=== PATIENT | male | born 1955 | race African-American/Black ===

== ENCOUNTER 2019-12-31 00:14 | Inpatient (IN) | payer MEDICAID ==
[~2019-12-31] VITALS: Ht 190.5 cm; Wt 128.8 kg
[2019-12-31] MEDS ORDERED: DEXTROSE 50% WATER 50ML SYRINGE IV ONE ×3 (00:55→11:44)
[2019-12-31] MEDS ORDERED: MORPHINE SULFATE 4 MG/ML CPJ (NOT FOR IM USE) IV STA (01:11)
[2019-12-31] MEDS ORDERED: SODIUM CHLORIDE 0.9% 1,000 ML IV ONE (01:11)
[2019-12-31] MEDS ORDERED: ONDANSETRON HCL 4MG/2ML INJ IV STA (01:11)
[2019-12-31] MEDS ORDERED: DEXT 10% WATER 1,000 ML IV ONE (01:11)
[2019-12-31] MEDS ORDERED: VANCOMYCIN 1 G PREMIX 200 ML IV ONE (01:15)
[2019-12-31] MEDS ORDERED: MIDAZOLAM HCL 50 MG in DEXTROSE 5% WATER 40 ML IV ONE (01:15)
[2019-12-31] MEDS ORDERED: FENTANYL CITRATE/PF 500 MCG in SODIUM CHLORIDE 0.9% 40 ML IV PRN (01:15)
[2019-12-31] MEDS ORDERED: VECURONIUM BROMIDE 10 MG/VIAL IV ONE (01:15)
[2019-12-31] MEDS ORDERED: PIPERACILLIN/TAZ 3.375G PREMIX 50 ML IV ONE (01:15)
[2019-12-31] MEDS ORDERED: ETOMIDATE 2MG/ML 10ML VIAL IV ONE (01:15)
[2019-12-31] MEDS ORDERED: FENTANYL CITRATE/PF 1,000 MCG in SODIUM CHLORIDE 0.9% 80 ML IV PRN ×5 (01:30→12:01)
[2019-12-31] MEDS ORDERED: MIDAZOLAM HCL 100 MG in DEXT 5% WATER 80 ML IV PRN ×3 (01:30→14:30)
[2019-12-31 01:40] LABS: BG BASE EXCESS -8.9 mmol/L (-2.0-2.0); BG DEOXYHEMOGLOBIN 0.6 % (0.0-5.0); BG FRACTION INSPIRED OXYGEN 100; BG HCO3 ACT 17.8 mmol/L (22.0-26.0); BG METHEMOGLOBIN 0.7 % (0.0-1.5); BG OXYGEN SATURATION 99.4 % (92.0-98.5); BG OXYHEMOGLOBIN 97.7 % (94.0-97.0); BG PCO2 42.6 mmHg (35.0-45.0); BG PH 7.239 (7.350-7.450); BG PO2 182.8 mmHg (75.0-100.0); BG SAMPLE SITE RIGHT RADIAL; BG TIDAL VOLUME(mL) 500 mL; BG VENT MODE VENT - A/C; BG VENT RATE 16 set
[2019-12-31 02:00] LABS: HEMATOCRIT. 23.8 % (42.0-52.0); MEAN CORPUSCULAR VOLUME 71.8 fL (80.0-94.0); MEAN PLATELET VOLUME 9.5 fl (7.4-10.4); PLATELET 389 x1000/uL (130-400); RED BLOOD CELL COUNT 3.32 mill/uL (4.7-6.1); RED CELL DISTRIBUTION WIDTH 18.4 % (11.6-14.6)
[2019-12-31 02:04] LABS: INR 1.3; PROTHROMBIN TIME 13.1 sec (9.6-11.0)
[2019-12-31] MEDS ORDERED: PIPERACILLIN/TAZ 3.375G PREMIX 50 ML IV NR (02:15)
[2019-12-31 02:25] LABS: CHLORIDE 107 mEq/L (98-107)
[2019-12-31 02:29] LABS: ETHANOL BLOOD 10 mg/dL
[2019-12-31 03:04] LABS: PLATELET ESTIMATE NORMAL
[2019-12-31] MEDS: VANCOMYCIN 1 G PREMIX 200 ML IV NR ×2 (04:28→06:06)
[2019-12-31 06:20] LABS: CLARITY URINE CLOUDY (CLEAR); COLOR URINE YELLOW (YELLOW); KETONES URINE NEGATIVE (NEGATIVE); LEUKOCYTE ESTERASE URINE 1+ (NEGATIVE); NITRITE URINE NEGATIVE (NEGATIVE); OCCULT BLOOD URINE 2+ (NEGATIVE); PROTEIN URINE 3+ (NEGATIVE); SPECIFIC GRAVITY URINE 1.019 (1.005-1.030)
[2019-12-31 06:36] LABS: OPIATES URINE SCREEN PRESUMTIVE POSITIVE (NEGATIVE); PHENCYCLIDINE URINE SCREEN NEGATIVE (NEGATIVE)
[2019-12-31 06:37] LABS: *AMPHETAMINES SCREEN URINE NEGATIVE (NEGATIVE); *BARBITURATES SCREEN URINE NEGATIVE (NEGATIVE); *BENZODIAZEPINES SCREEN URINE NEGATIVE (NEGATIVE); *COCAINE SCREEN URINE NEGATIVE (NEGATIVE); CANNABINOID URINE SCREEN NEGATIVE (NEGATIVE); METHADONE URINE SCREEN NEGATIVE (NEGATIVE)
[2019-12-31] MEDS ORDERED: NOREPINEPHRINE 8MG in DEXT 5% WATER 250ML (DOUBLE CONC) IV PRN (07:30)
[2019-12-31] MEDS: NOREPINEPHRINE 8MG in DEXT 5% WATER 250ML (DOUBLE CONC) IV PRN (07:44)
[2019-12-31] MEDS ORDERED: ONDANSETRON HCL 4MG/2ML INJ IV PRN (11:15)
[2019-12-31] MEDS: DEXT 5%/0.9% NACL 1,000 ML IV SCH (11:40)
[2019-12-31] MEDS ORDERED: PIPERACILLIN/TAZ 3.375G PREMIX 50 ML IV SCH (12:00)
[2019-12-31] MEDS ORDERED: VANCOMYCIN 1500MG in DEXTROSE 5% WATER 250ML IV SCH (12:00)
[2019-12-31] MEDS: PANTOPRAZOLE SODIUM 40 MG/VIAL IV SCH (12:17)
[2019-12-31] MEDS ORDERED: IPRATROPIUM/ALBUTEROL 0.5-3(2.5)MG/3ML NEB HHN PRN (16:30)
[2019-12-31] MEDS: FENTANYL CITRATE/PF 1,000 MCG in SODIUM CHLORIDE 0.9% 80 ML IV PRN (18:45)
[2019-12-31 19:07] LABS: HEMATOCRIT 26.9 % (42.0-52.0); HEMOGLOBIN 8.1 g/dL (14.0-18.0)
[2019-12-31] MEDS: PIPERACILLIN/TAZOBACTAM 3.375 G in DEXT 5% WATER 100 ML IV SCH (19:10)
[2019-12-31 19:16] LABS: INR 1.3; PROTHROMBIN TIME 13.3 sec (9.6-11.0)
[2019-12-31 19:49] LABS: FOLIC ACID (FOLATE) SERUM 5.5 ng/mL (>5.38)
[2019-12-31] MEDS: IPRATROPIUM/ALBUTEROL 0.5-3(2.5)MG/3ML NEB HHN SCH (21:10)
[2020-01-01] VITALS (58 sets, daily range): BP systolic 89–122; BP diastolic 27–71
[2020-01-01] MEDS: PIPERACILLIN/TAZOBACTAM 3.375 G in DEXT 5% WATER 100 ML IV SCH ×4 (00:13→17:23)
[2020-01-01] MEDS: IPRATROPIUM/ALBUTEROL 0.5-3(2.5)MG/3ML NEB HHN SCH ×5 (01:05→20:35)
[2020-01-01] MEDS: DEXT 5%/0.9% NACL 1,000 ML IV SCH ×2 (01:20→11:05)
[2020-01-01 05:36] LABS: HEMOGLOBIN. 7.4 g/dL (14.0-18.0); MEAN CORPUSCULAR VOLUME 71.3 fL (80.0-94.0); MEAN PLATELET VOLUME 9.2 fl (7.4-10.4); PLATELET 304 x1000/uL (130-400); RED BLOOD CELL COUNT 3.36 mill/uL (4.7-6.1); RED CELL DISTRIBUTION WIDTH 18.6 % (11.6-14.6)
[2020-01-01 08:03] LABS: PLATELET ESTIMATE NORMAL
[2020-01-01] MEDS: PANTOPRAZOLE SODIUM 40 MG/VIAL IV SCH (08:14)
[2020-01-01 10:02] LABS: BG BASE EXCESS -5.8 mmol/L (-2.0-2.0); BG CARBOXYHEMOGLOBIN 1.1 % (0.5-1.5); BG DEOXYHEMOGLOBIN 0.8 % (0.0-5.0); BG FRACTION INSPIRED OXYGEN 50; BG HCO3 ACT 19.7 mmol/L (22.0-26.0); BG METHEMOGLOBIN 0.3 % (0.0-1.5); BG OXYGEN SATURATION 99.2 % (92.0-98.5); BG OXYHEMOGLOBIN 97.8 % (94.0-97.0); BG PCO2 38.9 mmHg (35.0-45.0); BG PH 7.323 (7.350-7.450); BG PO2 142.8 mmHg (75.0-100.0); BG SAMPLE SITE RIGHT RADIAL; BG TIDAL VOLUME(mL) 500 mL; BG VENT MODE VENT - A/C; BG VENT RATE 18 set
[2020-01-01] MEDS ORDERED: VANCOMYCIN 1500MG in DEXTROSE 5% WATER 250ML IV NR (12:00)
[2020-01-01] MEDS ORDERED: FUROSEMIDE 40MG/4ML VIAL IVP NR (12:00)
[2020-01-01] MEDS: FENTANYL CITRATE/PF 1,000 MCG in SODIUM CHLORIDE 0.9% 80 ML IV PRN (13:34)
[2020-01-02] VITALS (92 sets, daily range): BP systolic 80–151; BP diastolic 47–94
[2020-01-02] MEDS: PIPERACILLIN/TAZOBACTAM 3.375 G in DEXT 5% WATER 100 ML IV SCH ×5 (00:51→23:59)
[2020-01-02] MEDS: FENTANYL CITRATE/PF 1,000 MCG in SODIUM CHLORIDE 0.9% 80 ML IV PRN (01:13)
[2020-01-02] MEDS: IPRATROPIUM/ALBUTEROL 0.5-3(2.5)MG/3ML NEB HHN SCH ×4 (02:10→20:29)
[2020-01-02] MEDS: DEXTROSE 50% WATER 50ML SYRINGE IV PRN ×2 (06:36→09:14)
[2020-01-02 08:55] LABS: BG BASE EXCESS -7.5 mmol/L (-2.0-2.0); BG CARBOXYHEMOGLOBIN 1.1 % (0.5-1.5); BG DEOXYHEMOGLOBIN 1.5 % (0.0-5.0); BG FRACTION INSPIRED OXYGEN 35; BG HCO3 ACT 18.1 mmol/L (22.0-26.0); BG METHEMOGLOBIN 0.5 % (0.0-1.5); BG OXYGEN SATURATION 98.5 % (92.0-98.5); BG OXYHEMOGLOBIN 96.9 % (94.0-97.0); BG PH 7.308 (7.350-7.450); BG PO2 117.5 mmHg (75.0-100.0); BG SAMPLE SITE RIGHT RADIAL; BG TIDAL VOLUME(mL) 500 mL; BG TOTAL HEMOGLOBIN 8.4 g/dL (12.0-18.0); BG VENT MODE VENT - A/C; BG VENT RATE 18 set
[2020-01-02] MEDS: FUROSEMIDE 40MG/4ML VIAL IVP SCH (09:19)
[2020-01-02] MEDS: PANTOPRAZOLE SODIUM 40 MG/VIAL IV SCH (09:19)
[2020-01-02 09:23] LABS: HEMOGLOBIN. 7.5 g/dL (14.0-18.0); MEAN CORPUSCULAR HEMOGLOBIN 22.2 pg (28.0-32.0); MEAN PLATELET VOLUME 9.7 fl (7.4-10.4); PLATELET 289 x1000/uL (130-400); RED BLOOD CELL COUNT 3.39 mill/uL (4.7-6.1); RED CELL DISTRIBUTION WIDTH 18.7 % (11.6-14.6)
[2020-01-02] MEDS ORDERED: MORPHINE SULFATE 2 MG/ML CPJ (NOT FOR IM USE) IV PRN (11:00)
[2020-01-02] MEDS: DEXT 5%/0.9% NACL 1,000 ML IV SCH (11:23)
[2020-01-02 14:05] LABS: NUCLEATED RED BLOOD CELLS 1 /100 WBC
[2020-01-02 14:06] LABS: PLATELET ESTIMATE NORMAL
[2020-01-02] MEDS: NOREPINEPHRINE 8MG in DEXT 5% WATER 250ML (DOUBLE CONC) IV PRN (14:39)
[2020-01-02] MEDS ORDERED: VANCOMYCIN 1250MG in DEXTROSE 5% WATER 250ML IV NR (15:00)
[2020-01-02 20:49] LABS: TOTAL IRON BINDING CAPACITY 323 ug/dL (250-450)
[2020-01-03] VITALS (72 sets, daily range): BP systolic 97–156; BP diastolic 52–85
[2020-01-03] MEDS: IPRATROPIUM/ALBUTEROL 0.5-3(2.5)MG/3ML NEB HHN SCH ×4 (00:30→20:20)
[2020-01-03 05:43] LABS: HEMATOCRIT. 23.7 % (42.0-52.0); HEMOGLOBIN. 7.4 g/dL (14.0-18.0); MEAN CORPUSCULAR HEMOGLOBIN 21.7 pg (28.0-32.0); MEAN CORPUSCULAR VOLUME 69.9 fL (80.0-94.0); PLATELET 309 x1000/uL (130-400); RED CELL DISTRIBUTION WIDTH 19.3 % (11.6-14.6)
[2020-01-03] MEDS: PIPERACILLIN/TAZOBACTAM 3.375 G in DEXT 5% WATER 100 ML IV SCH ×3 (05:51→17:54)
[2020-01-03] MEDS: DEXT 5%/0.9% NACL 1,000 ML IV SCH (08:40)
[2020-01-03] MEDS: FUROSEMIDE 40MG/4ML VIAL IVP SCH (08:41)
[2020-01-03] MEDS: PANTOPRAZOLE SODIUM 40 MG/VIAL IV SCH ×2 (08:41→16:17)
[2020-01-03] MEDS: IRON SUCROSE COMPLEX 100 MG/5 ML ML IV SCH (12:48)
[2020-01-03 13:16] LABS: PLATELET ESTIMATE NORMAL
[2020-01-03] MEDS ORDERED: VANCOMYCIN 1250MG in DEXTROSE 5% WATER 250ML IV NR (15:00)
[2020-01-03] MEDS ORDERED: DILTIAZEM HCL 5MG/ML 5ML VIAL IV PRN ×2 (16:00→16:15)
[2020-01-03] MEDS: DILTIAZEM HCL 30MG TABLET NG SCH (16:17)
[2020-01-03] MEDS: LORAZEPAM 2MG/ML CPJ IV PRN (17:59)
[2020-01-03 19:42] LABS: HEMOGLOBIN 7.9 g/dL (14.0-18.0)
[2020-01-04] VITALS (56 sets, daily range): BP systolic 105–141; BP diastolic 58–104
[2020-01-04] MEDS: PIPERACILLIN/TAZOBACTAM 3.375 G in DEXT 5% WATER 100 ML IV SCH ×5 (00:04→23:51)
[2020-01-04] MEDS: DILTIAZEM HCL 30MG TABLET NG SCH ×2 (00:06→06:37)
[2020-01-04 01:39] LABS: HEMATOCRIT 23.7 % (42.0-52.0); HEMOGLOBIN 7.7 g/dL (14.0-18.0)
[2020-01-04] MEDS: IPRATROPIUM/ALBUTEROL 0.5-3(2.5)MG/3ML NEB HHN SCH ×4 (01:45→19:55)
[2020-01-04] MEDS: DEXT 5%/0.9% NACL 1,000 ML IV SCH ×2 (04:45→23:52)
[2020-01-04 06:07] LABS: HEMATOCRIT. 24.4 % (42.0-52.0); HEMOGLOBIN. 7.7 g/dL (14.0-18.0); MEAN CORPUSCULAR HEMOGLOBIN 22.1 pg (28.0-32.0); MEAN CORPUSCULAR VOLUME 70.1 fL (80.0-94.0); MEAN PLATELET VOLUME 8.9 fl (7.4-10.4); PLATELET 301 x1000/uL (130-400); RED BLOOD CELL COUNT 3.48 mill/uL (4.7-6.1)
[2020-01-04 07:46] LABS: BG BASE EXCESS -3.8 mmol/L (-2.0-2.0); BG CARBOXYHEMOGLOBIN 0.3 % (0.5-1.5); BG DEOXYHEMOGLOBIN 1.2 % (0.0-5.0); BG FRACTION INSPIRED OXYGEN 35; BG HCO3 ACT 20.6 mmol/L (22.0-26.0); BG METHEMOGLOBIN 0.5 % (0.0-1.5); BG OXYGEN SATURATION 98.8 % (92.0-98.5); BG PCO2 34.2 mmHg (35.0-45.0); BG PH 7.397 (7.350-7.450); BG PO2 150.4 mmHg (75.0-100.0); BG SAMPLE SITE RIGHT RADIAL; BG TIDAL VOLUME(mL) 500 mL; BG TOTAL HEMOGLOBIN 7.9 g/dL (12.0-18.0); BG VENT MODE VENT - A/C; BG VENT RATE 18 set
[2020-01-04 08:04] LABS: PLATELET ESTIMATE NORMAL
[2020-01-04] MEDS: FUROSEMIDE 40MG/4ML VIAL IVP SCH (09:32)
[2020-01-04] MEDS: PANTOPRAZOLE SODIUM 40 MG/VIAL IV SCH ×2 (09:32→16:56)
[2020-01-04 09:35] LABS: INR 1.2; PROTHROMBIN TIME 12.3 sec (9.6-11.0)
[2020-01-04] MEDS: DILTIAZEM HCL 60MG TABLET NG SCH ×3 (12:20→23:52)
[2020-01-04] MEDS: DOCUSATE SODIUM 250MG CAPSULE PO SCH (12:21)
[2020-01-04] MEDS: IRON SUCROSE COMPLEX 100 MG/5 ML ML IV SCH (12:21)
[2020-01-04] MEDS: BLOOD SUGAR DIAGNOSTIC STRIP TEST SCH ×2 (16:56→23:52)
[2020-01-04] MEDS: VANCOMYCIN 1250MG in DEXTROSE 5% WATER 250ML IV SCH (16:56)
[2020-01-05] VITALS (60 sets, daily range): BP systolic 91–124; BP diastolic 41–80
[2020-01-05] MEDS: IPRATROPIUM/ALBUTEROL 0.5-3(2.5)MG/3ML NEB HHN SCH ×4 (02:32→20:40)
[2020-01-05 05:12] LABS: HEMATOCRIT. 22.8 % (42.0-52.0); HEMOGLOBIN. 7.1 g/dL (14.0-18.0); MEAN CORPUSCULAR HEMOGLOBIN 22.1 pg (28.0-32.0); MEAN CORPUSCULAR VOLUME 70.4 fL (80.0-94.0); MEAN PLATELET VOLUME 9.3 fl (7.4-10.4); PLATELET 309 x1000/uL (130-400); RED BLOOD CELL COUNT 3.23 mill/uL (4.7-6.1); RED CELL DISTRIBUTION WIDTH 19.7 % (11.6-14.6)
[2020-01-05] MEDS: BLOOD SUGAR DIAGNOSTIC STRIP TEST SCH ×4 (05:38→23:36)
[2020-01-05] MEDS: PIPERACILLIN/TAZOBACTAM 3.375 G in DEXT 5% WATER 100 ML IV SCH ×3 (05:42→17:08)
[2020-01-05] MEDS: DILTIAZEM HCL 60MG TABLET NG SCH ×3 (05:42→21:02)
[2020-01-05] MEDS ORDERED: POTASSIUM CHLORIDE 20MEQ/PACKET NG NR (07:00)
[2020-01-05 08:36] LABS: BG BASE EXCESS -1.3 mmol/L (-2.0-2.0); BG CARBOXYHEMOGLOBIN 0.8 % (0.5-1.5); BG DEOXYHEMOGLOBIN 0.6 % (0.0-5.0); BG FRACTION INSPIRED OXYGEN 35; BG HCO3 ACT 22.9 mmol/L (22.0-26.0); BG METHEMOGLOBIN 0.3 % (0.0-1.5); BG OXYGEN SATURATION 99.4 % (92.0-98.5); BG OXYHEMOGLOBIN 98.3 % (94.0-97.0); BG PCO2 35.7 mmHg (35.0-45.0); BG PH 7.425 (7.350-7.450); BG PO2 134.6 mmHg (75.0-100.0); BG SAMPLE SITE RIGHT RADIAL; BG TIDAL VOLUME(mL) 500 mL; BG TOTAL HEMOGLOBIN 7.8 g/dL (12.0-18.0); BG VENT MODE VENT - A/C; BG VENT RATE 18 set
[2020-01-05 09:00] LABS: PLATELET ESTIMATE NORMAL
[2020-01-05] MEDS: PANTOPRAZOLE SODIUM 40 MG/VIAL IV SCH ×2 (09:42→17:08)
[2020-01-05] MEDS: FUROSEMIDE 40MG/4ML VIAL IVP SCH (09:42)
[2020-01-05] MEDS: DOCUSATE SODIUM 250MG CAPSULE PO SCH (09:43)
[2020-01-05] MEDS: IRON SUCROSE COMPLEX 100 MG/5 ML ML IV SCH (13:16)
[2020-01-05 16:12] LABS: HEMATOCRIT 26.5 % (42.0-52.0); HEMOGLOBIN 8.5 g/dL (14.0-18.0)
[2020-01-05] MEDS: VANCOMYCIN 1250MG in DEXTROSE 5% WATER 250ML IV SCH (17:08)
[2020-01-05] MEDS: DEXT 5%/0.9% NACL 1,000 ML IV SCH (20:33)
[2020-01-06] VITALS (24 sets, daily range): BP systolic 97–133; BP diastolic 59–80
[2020-01-06] MEDS: IPRATROPIUM/ALBUTEROL 0.5-3(2.5)MG/3ML NEB HHN SCH ×4 (00:30→20:01)
[2020-01-06] MEDS: BLOOD SUGAR DIAGNOSTIC STRIP TEST SCH ×3 (05:41→17:39)
[2020-01-06] MEDS: DILTIAZEM HCL 60MG TABLET NG SCH ×3 (06:00→22:00)
[2020-01-06 06:26] LABS: EOSINOPHILS % 4.9 % (0.0-5.0); HEMATOCRIT. 25.5 % (42.0-52.0); HEMOGLOBIN. 8.1 g/dL (14.0-18.0); LYMPHOCYTES % 8.1 % (20.0-50.0); MEAN CORPUSCULAR HEMOGLOBIN 22.9 pg (28.0-32.0); MEAN CORPUSCULAR VOLUME 72.4 fL (80.0-94.0); MONOCYTES % 14.2 % (2.0-8.0); NEUTROPHILS % 71.8 % (40.0-76.0); PLATELET 314 x1000/uL (130-400); RED BLOOD CELL COUNT 3.52 mill/uL (4.7-6.1)
[2020-01-06] MEDS: PANTOPRAZOLE SODIUM 40 MG/VIAL IV SCH ×2 (08:31→16:47)
[2020-01-06] MEDS: FUROSEMIDE 40MG/4ML VIAL IVP SCH (08:31)
[2020-01-06] MEDS: DOCUSATE SODIUM 250MG CAPSULE PO SCH (08:31)
[2020-01-06 09:04] LABS: BG BASE EXCESS -1.5 mmol/L (-2.0-2.0); BG CARBOXYHEMOGLOBIN 0.4 % (0.5-1.5); BG DEOXYHEMOGLOBIN 1.9 % (0.0-5.0); BG FRACTION INSPIRED OXYGEN 28; BG HCO3 ACT 22.7 mmol/L (22.0-26.0); BG METHEMOGLOBIN 0.2 % (0.0-1.5); BG OXYGEN SATURATION 98.1 % (92.0-98.5); BG OXYHEMOGLOBIN 97.5 % (94.0-97.0); BG PCO2 36.1 mmHg (35.0-45.0); BG PH 7.417 (7.350-7.450); BG PO2 110.6 mmHg (75.0-100.0); BG SAMPLE SITE RIGHT RADIAL; BG TIDAL VOLUME(mL) 500 mL; BG TOTAL HEMOGLOBIN 8.4 g/dL (12.0-18.0); BG VENT MODE VENT - A/C; BG VENT RATE 18 set
[2020-01-06] MEDS ORDERED: POTASSIUM CHLORIDE 20MEQ TABLET SR PO NR (10:45)
[2020-01-06] MEDS: DEXT 5%/0.9% NACL 1,000 ML IV SCH (16:47)
[2020-01-06] MEDS: ACETAMINOPHEN 325MG TABLET PO PRN (21:12)
[2020-01-07] VITALS (56 sets, daily range): BP systolic 91–131; BP diastolic 54–104
[2020-01-07] MEDS: IPRATROPIUM/ALBUTEROL 0.5-3(2.5)MG/3ML NEB HHN SCH ×4 (02:06→20:22)
[2020-01-07] MEDS: ACETAMINOPHEN 325MG TABLET PO PRN (03:25)
[2020-01-07 05:55] LABS: BASOPHILS % 0.8 % (0.0-2.0); HEMATOCRIT. 27.8 % (42.0-52.0); HEMOGLOBIN. 8.6 g/dL (14.0-18.0); LYMPHOCYTES % 15.3 % (20.0-50.0); MEAN CORPUSCULAR HEMOGLOBIN 22.7 pg (28.0-32.0); MEAN CORPUSCULAR VOLUME 73.6 fL (80.0-94.0); MONOCYTES % 11.3 % (2.0-8.0); NEUTROPHILS % 68.6 % (40.0-76.0); PLATELET 378 x1000/uL (130-400); RED BLOOD CELL COUNT 3.78 mill/uL (4.7-6.1); RED CELL DISTRIBUTION WIDTH 20.9 % (11.6-14.6)
[2020-01-07] MEDS: DILTIAZEM HCL 60MG TABLET NG SCH (06:00)
[2020-01-07] MEDS: BLOOD SUGAR DIAGNOSTIC STRIP TEST SCH ×4 (06:00→17:34)
[2020-01-07 06:29] LABS: INR 1.1; PARTIAL THROMBOPLASTIN TIME 31.3 sec (23.4-31.0); PROTHROMBIN TIME 11.3 sec (9.6-11.0)
[2020-01-07] MEDS: DOCUSATE SODIUM 250MG CAPSULE PO SCH (08:11)
[2020-01-07] MEDS: FUROSEMIDE 40MG/4ML VIAL IVP SCH (09:26)
[2020-01-07] MEDS: PANTOPRAZOLE SODIUM 40 MG/VIAL IV SCH ×2 (09:26→17:37)
[2020-01-07] MEDS: LORAZEPAM 2MG/ML CPJ IV PRN (09:26)
[2020-01-07] MEDS ORDERED: CEFAZOLIN 1000MG PREMIX 50 ML IV SCH (10:00)
[2020-01-07] MEDS ORDERED: DILTIAZEM HCL 30MG TABLET NG SCH (11:15)
[2020-01-07] MEDS ORDERED: FENTANYL CITRATE/PF 50MCG/ML 2ML VIAL ONE (12:32)
[2020-01-07] MEDS ORDERED: MIDAZOLAM HCL 5 MG/5 ML VIAL ONE (12:32)
[2020-01-07] MEDS ORDERED: MIDAZOLAM HCL 2 MG/2 ML VIAL ONE (13:00)
[2020-01-07] MEDS ORDERED: ROCURONIUM BROMIDE 10MG/ML VIAL 5ML IV ONE (13:00)
[2020-01-07] MEDS: SUCRALFATE 1 G/10 ML UDC PO SCH ×2 (17:37→20:00)
[2020-01-07] MEDS: DEXT 5%/0.9% NACL 1,000 ML IV SCH (17:37)
[2020-01-07] MEDS: METOCLOPRAMIDE HCL 10MG/2ML VIAL IV SCH (17:37)
[2020-01-07] MEDS: CARVEDILOL 3.125 MG TABLET PO SCH (20:57)
[2020-01-08] VITALS (21 sets, daily range): BP systolic 87–134; BP diastolic 56–91
[2020-01-08] MEDS: BLOOD SUGAR DIAGNOSTIC STRIP TEST SCH ×5 (00:23→23:24)
[2020-01-08] MEDS: ACETAMINOPHEN 325MG TABLET PO PRN (00:23)
[2020-01-08] MEDS: IPRATROPIUM/ALBUTEROL 0.5-3(2.5)MG/3ML NEB HHN SCH ×4 (00:32→20:29)
[2020-01-08] MEDS: METOCLOPRAMIDE HCL 10MG/2ML VIAL IV SCH ×5 (05:28→23:24)
[2020-01-08 05:38] LABS: HEMATOCRIT. 24.5 % (42.0-52.0); HEMOGLOBIN. 7.5 g/dL (14.0-18.0); MEAN CORPUSCULAR HEMOGLOBIN 22.5 pg (28.0-32.0); MEAN CORPUSCULAR VOLUME 73.6 fL (80.0-94.0); MEAN PLATELET VOLUME 8.9 fl (7.4-10.4); PLATELET 294 x1000/uL (130-400); RED BLOOD CELL COUNT 3.32 mill/uL (4.7-6.1); RED CELL DISTRIBUTION WIDTH 20.8 % (11.6-14.6)
[2020-01-08] MEDS: CARVEDILOL 3.125 MG TABLET PO SCH (08:27)
[2020-01-08] MEDS: DEXT 5%/0.9% NACL 1,000 ML IV SCH (08:56)
[2020-01-08] MEDS: SUCRALFATE 1 G/10 ML UDC PO SCH ×4 (08:57→20:38)
[2020-01-08] MEDS: FUROSEMIDE 40MG/4ML VIAL IVP SCH (08:57)
[2020-01-08] MEDS: PANTOPRAZOLE SODIUM 40 MG/VIAL IV SCH ×2 (08:57→17:30)
[2020-01-08] MEDS: DOCUSATE SODIUM 250MG CAPSULE PO SCH (08:58)
[2020-01-08 09:10] LABS: BG BASE EXCESS 0.8 mmol/L (-2.0-2.0); BG CARBOXYHEMOGLOBIN 0.6 % (0.5-1.5); BG DEOXYHEMOGLOBIN 1.3 % (0.0-5.0); BG FRACTION INSPIRED OXYGEN 35; BG HCO3 ACT 24.7 mmol/L (22.0-26.0); BG METHEMOGLOBIN 0.3 % (0.0-1.5); BG OXYGEN SATURATION 98.7 % (92.0-98.5); BG OXYHEMOGLOBIN 97.8 % (94.0-97.0); BG PH 7.454 (7.350-7.450); BG PO2 139.2 mmHg (75.0-100.0); BG SAMPLE SITE RIGHT RADIAL; BG TIDAL VOLUME(mL) 500 mL; BG TOTAL HEMOGLOBIN 8.4 g/dL (12.0-18.0); BG VENT MODE VENT - A/C; BG VENT RATE 18 set
[2020-01-08 09:34] LABS: PLATELET ESTIMATE NORMAL
[2020-01-08] MEDS ORDERED: LIDOCAINE HCL 1% 20ML VIAL (Pyxis) INJ ONE (09:46)
[2020-01-08] MEDS: LEVOFLOXACIN 500MG PREMIX 100 ML IV SCH (12:23)
[2020-01-08] MEDS: FERROUS SULFATE 325MG TABLET PO SCH ×2 (12:23→17:31)
[2020-01-08] MEDS: AMIODARONE HCL 200 MG TABLET PO SCH (20:38)
[2020-01-09] VITALS (13 sets, daily range): BP systolic 100–137; BP diastolic 57–79
[2020-01-09] MEDS: IPRATROPIUM/ALBUTEROL 0.5-3(2.5)MG/3ML NEB HHN SCH ×5 (01:16→23:59)
[2020-01-09] MEDS: METOCLOPRAMIDE HCL 10MG/2ML VIAL IV SCH ×2 (05:10→11:07)
[2020-01-09] MEDS: BLOOD SUGAR DIAGNOSTIC STRIP TEST SCH ×4 (05:10→23:38)
[2020-01-09] MEDS: DEXT 5%/0.9% NACL 1,000 ML IV SCH (05:11)
[2020-01-09] MEDS: PANTOPRAZOLE SODIUM 40 MG/VIAL IV SCH ×2 (08:10→18:19)
[2020-01-09] MEDS: SUCRALFATE 1 G/10 ML UDC PO SCH ×4 (08:10→21:01)
[2020-01-09] MEDS: AMIODARONE HCL 200 MG TABLET PO SCH ×2 (08:10→21:01)
[2020-01-09] MEDS: FERROUS SULFATE 325MG TABLET PO SCH ×3 (08:10→18:19)
[2020-01-09] MEDS: DOCUSATE SODIUM 250MG CAPSULE PO SCH (08:10)
[2020-01-09] MEDS: FUROSEMIDE 40MG/4ML VIAL IVP SCH (08:10)
[2020-01-09] MEDS ORDERED: DOCUSATE SODIUM 250MG CAPSULE PO SCH (09:00)
[2020-01-09] MEDS: LEVOFLOXACIN 500MG PREMIX 100 ML IV SCH (10:18)
[2020-01-09 16:01] LABS: BASOPHILS % 1.2 % (0.0-2.0); EOSINOPHILS % 2.9 % (0.0-5.0); HEMATOCRIT. 24.8 % (42.0-52.0); HEMOGLOBIN. 7.6 g/dL (14.0-18.0); LYMPHOCYTES % 7.3 % (20.0-50.0); MEAN CORPUSCULAR HEMOGLOBIN 22.9 pg (28.0-32.0); MEAN CORPUSCULAR VOLUME 74.8 fL (80.0-94.0); MEAN PLATELET VOLUME 9.1 fl (7.4-10.4); MONOCYTES % 6.9 % (2.0-8.0); NEUTROPHILS % 81.7 % (40.0-76.0); PLATELET 303 x1000/uL (130-400); RED BLOOD CELL COUNT 3.31 mill/uL (4.7-6.1); RED CELL DISTRIBUTION WIDTH 21.9 % (11.6-14.6)
[2020-01-09 16:10] LABS: CHLORIDE 111 mEq/L (98-107)
[2020-01-10] VITALS (11 sets, daily range): BP systolic 95–118; BP diastolic 55–74
[2020-01-10] MEDS: BLOOD SUGAR DIAGNOSTIC STRIP TEST SCH ×3 (05:36→17:30)
[2020-01-10] MEDS: IPRATROPIUM/ALBUTEROL 0.5-3(2.5)MG/3ML NEB HHN SCH ×3 (08:03→20:37)
[2020-01-10] MEDS: PANTOPRAZOLE SODIUM 40 MG/VIAL IV SCH ×2 (08:32→17:29)
[2020-01-10] MEDS: AMIODARONE HCL 200 MG TABLET PO SCH ×2 (08:32→20:01)
[2020-01-10] MEDS: FERROUS SULFATE 325MG TABLET PO SCH ×3 (08:33→17:29)
[2020-01-10] MEDS: SUCRALFATE 1 G/10 ML UDC PO SCH ×4 (08:33→20:01)
[2020-01-10] MEDS: DOCUSATE SODIUM 250MG CAPSULE PO SCH (08:33)
[2020-01-10] MEDS ORDERED: FUROSEMIDE 40MG TABLET PO SCH (09:00)
[2020-01-10] MEDS ORDERED: DOCUSATE SODIUM SUGAR FREE 100MG/10ML UDC NG SCH (09:00)
[2020-01-10] MEDS: LEVOFLOXACIN 500MG PREMIX 100 ML IV SCH (11:18)
== END 2020-01-10 21:48 | DRG 4 ==
LOC: ER 00:14 → EDBD 00:14 → EDBEDREQ 03:56 → EDBEDREQTM 03:56 → MICUSO 22:17 → CVICU 01-01 07:30 → 5EST 01-08 14:30
PROVIDERS: ADMIT Internal Medicine; ATTEND Internal Medicine
PROC: 5A1955Z Respiratory Ventilation, Greater than 96 Consecutive Hours (ICD-10-PCS; principal; 2019-12-31)
PROC: 0BH17EZ Insertion of Endotracheal Airway into Trachea, Via Natural or Artificial Opening (ICD-10-PCS; 2019-12-31)
PROC: B54BZZA Ultrasonography of Right Lower Extremity Veins, Guidance (ICD-10-PCS; 2019-12-31)
PROC: 06HY33Z Insertion of Infusion Device into Lower Vein, Percutaneous Approach (ICD-10-PCS; 2019-12-31)
PROC: 30233N1 Transfusion of Nonautologous Red Blood Cells into Peripheral Vein, Percutaneous Approach (ICD-10-PCS; 2020-01-05)
PROC: 0B110F4 Bypass Trachea to Cutaneous with Tracheostomy Device, Open Approach (ICD-10-PCS; 2020-01-07)
PROC: 0GBJ0ZZ Excision of Thyroid Gland Isthmus, Open Approach (ICD-10-PCS; 2020-01-07)
PROC: 0DH63UZ Insertion of Feeding Device into Stomach, Percutaneous Approach (ICD-10-PCS; 2020-01-07)
PROC: 0DB68ZX Excision of Stomach, Via Natural or Artificial Opening Endoscopic, Diagnostic (ICD-10-PCS; 2020-01-07)
PROC: 02HV33Z Insertion of Infusion Device into Superior Vena Cava, Percutaneous Approach (ICD-10-PCS; 2020-01-08)
PROC: B548ZZA Ultrasonography of Superior Vena Cava, Guidance (ICD-10-PCS; 2020-01-08)
DX: A41.9 Sepsis, unspecified organism (principal); J96.00 Acute respiratory failure, unspecified whether with hypoxia or hypercapnia; J44.0 Chronic obstructive pulmonary disease with (acute) lower respiratory infection; J18.9 Pneumonia, unspecified organism; N17.0 Acute kidney failure with tubular necrosis; N18.2 Chronic kidney disease, stage 2 (mild); I25.5 Ischemic cardiomyopathy; G92 Toxic encephalopathy; E11.649 Type 2 diabetes mellitus with hypoglycemia without coma; I27.20 Pulmonary hypertension, unspecified; E11.22 Type 2 diabetes mellitus with diabetic chronic kidney disease; D50.9 Iron deficiency anemia, unspecified; D72.810 Lymphocytopenia; E87.2 Acidosis; I08.1 Rheumatic disorders of both mitral and tricuspid valves; I13.0 Hypertensive heart and chronic kidney disease with heart failure and stage 1 through stage 4 chronic kidney disease, or unspecified chronic kidney disease; I25.10 Atherosclerotic heart disease of native coronary artery without angina pectoris; I48.91 Unspecified atrial fibrillation; I63.9 Cerebral infarction, unspecified; K25.9 Gastric ulcer, unspecified as acute or chronic, without hemorrhage or perforation; K29.70 Gastritis, unspecified, without bleeding; K29.80 Duodenitis without bleeding; Z20.828 Contact with and (suspected) exposure to other viral communicable diseases; I50.43 Acute on chronic combined systolic (congestive) and diastolic (congestive) heart failure; L89.156 Pressure-induced deep tissue damage of sacral region; E46 Unspecified protein-calorie malnutrition; R65.21 Severe sepsis with septic shock; Z87.891 Personal history of nicotine dependence; Z68.35 Body mass index [BMI] 35.0-35.9, adult
CPT/HCPCS: 36415; 36600; 70551; 71045; 76937; 80048; 80053; 80061; 80202; 80305; 80320; 81003; 82040; 82140; 82270; 82375; 82465; 82607; 82728; 82746; 82805; 82962; 83036; 83540; 83550; 83605; 83721; 83880; 84134; 84145; 84439; 84443; 84481; 84484; 85014; 85018; 85025; 85049; 85384; 86850; 86900; 86920; 87070; 87635; 88304; 88305; 88313; 93005; 93306; 93880; 93970; 94002; 94003; 94640; 96365; 97162; 97166; 99291; C1725; C9113; J0690; J1940; J1956; J2060; J2250; J2270; J2405; J2543; J2765; J3010; J3370; J3490; J7030; J7050; J7060; P9016; G0480